=== PATIENT | female | born 1995 | race American Indian/Alaskan Native ===

== ENCOUNTER 2021-04-07 08:28 | Emergency (ER) | payer OTHER ==
[2021-04-07] MEDS ORDERED: IBUPROFEN 600 MG TAB PO ONE (10:43)
--- NOTE | 2021-04-07 10:46 | Emergency Department Report ---
ED ENT HPI - General Chief complaint: Sore Throat Stated complaint: SORE THROAT Time Seen by Provider: 04/07/21 10:42 Source: patient Mode of arrival: Ambulatory Limitations: No Limitations - History of Present Illness Initial comments: The patient was evaluated in the emergency department for symptoms described in the history of present illness. He/she was evaluated in the context of the global COVID-19 pandemic, which necessitated consideration that the patient might be at risk for infection with the virus that causes COVID-19. Institutional protocols and algorithms that pertain to the evaluation of patients at risk for COVID-19 are in a state of rapid change based on information released by regulatory bodies including the CDC and federal and state organizations. These policies and algorithms were followed during the patient's care in the emergency department. Please note that these policies, procedures and recommendations changed on a rapid basis. 26-year-old -[place] female presents to the emergency room complaining of's sore throat for 2 weeks. Patient also reports of tonsillar pain. She states pain with swallowing. She has taken nothing for pain but is taken Benadryl. She denies any past medical history currently takes no meds and has no known drug allergies. Patient denies any fever chills no nausea no vomiting no chest pain or shortness of breath. MD complaint: sore throat Onset/Timin -: week(s) Location: throat Severity: moderate Severity scale (0 -10): 7 Quality: stabbing, sharp Consistency: constant Improves with: none Worsens with: none Associated Symptoms: cough, pain with swallowing, sore throat. denies: fever - Related Data Previous Rx's Medication Instructions Recorded Last Taken Type Amoxicillin [Trimox CAP] 500 mg PO Q8H #21 capsule 11/21/19 Unknown Rx Benzonatate [Tessalon Perles] 100 mg PO Q8HR #30 capsule 11/21/19 Unknown Rx Nystas/Diphen/Xyl Visc/Mylanta 15 ml MM Q6H PRN #120 ml 11/21/19 Unknown Rx [Magic Mouthwash] Allergies Allergy/AdvReac Type Severity Reaction Status Date / Time No Known Allergies Allergy Verified 04/07/21 12:10 ED Dental HPI - General Chief complaint: Sore Throat Stated complaint: SORE THROAT Time Seen by Provider: 04/07/21 10:42 Source: patient Mode of arrival: Ambulatory Limitations: No Limitations - Related Data Previous Rx's Medication Instructions Recorded Last Taken Type Amoxicillin [Trimox CAP] 500 mg PO Q8H #21 capsule 11/21/19 Unknown Rx Benzonatate [Tessalon Perles] 100 mg PO Q8HR #30 capsule 11/21/19 Unknown Rx Nystas/Diphen/Xyl Visc/Mylanta 15 ml MM Q6H PRN #120 ml 11/21/19 Unknown Rx [Magic Mouthwash] Allergies Allergy/AdvReac Type Severity Reaction Status Date / Time No Known Allergies Allergy Verified 04/07/21 12:10 ED Review of Systems ROS: Stated complaint: SORE THROAT Other details as noted in HPI Comment: All other systems reviewed and negative ED Past Medical Hx - Social History Smoking Status: Never Smoker Substance Use Type: None - Medications Home Medications: Home Medications Medication Instructions Recorded Confirmed Last Taken Type Amoxicillin [Trimox CAP] 500 mg PO Q8H #21 capsule 11/21/19 04/07/21 Unknown Rx Benzonatate [Tessalon Perles] 100 mg PO Q8HR #30 capsule 11/21/19 04/07/21 Unknown Rx Nystas/Diphen/Xyl Visc/Mylanta 15 ml MM Q6H PRN #120 ml 11/21/19 04/07/21 Unknown Rx [Magic Mouthwash] ED Physical Exam - General Limitations: No Limitations General appearance: alert, in no apparent distress - Head Head exam: Present: atraumatic, normocephalic - Eye Eye exam: Present: normal appearance - ENT ENT exam: Present: mucous membranes moist - Expanded ENT Exam Expanded Throat exam: Positive: tonsillar erythema, tonsillomegaly - Neck Neck exam: Present: normal inspection, tenderness, full ROM, lymphadenopathy - Respiratory Respiratory exam: Present: normal lung sounds bilaterally. Absent: respiratory distress - Cardiovascular Cardiovascular Exam: Present: regular rate, normal rhythm. Absent: systolic murmur, diastolic murmur, rubs, gallop - GI/Abdominal GI/Abdominal exam: Present: soft, normal bowel sounds - Extremities Exam Extremities exam: Present: normal inspection - Back Exam Back exam: Present: normal inspection - Neurological Exam Neurological exam: Present: alert, oriented X3 - Psychiatric Psychiatric exam: Present: normal affect, normal mood - Skin Skin exam: Present: warm, dry, intact, normal color. Absent: rash ED Course Vital Signs 04/07/21 04/07/21 09:19 12:07 Temperature 98.0 F 98.2 F Pulse Rate 100 H 69 Respiratory 16 12 Rate Blood Pressure 114/71 111/73 Blood Pressure 111/73 [Right] O2 Sat by Pulse 98 97 Oximetry ED Medical Decision Making - Medical Decision Making 26-year-old -[place] female presents to the emergency room complaining of's sore throat for 2 weeks. Patient also reports of tonsillar pain. She states pain with swallowing. She has taken nothing for pain but is taken Benadryl. She denies any past medical history currently takes no meds and has no known drug allergies. Patient denies any fever chills no nausea no vomiting no chest pain or shortness of breath. Rapid strep throat ibuprofen has been ordered Strep test is negative. Patient be treated for viral sore throat. Critical care attestation.: If time is entered above; I have spent that time in minutes in the direct care of this critically ill patient, excluding procedure time. ED Disposition Clinical Impression: Sore throat (viral) Disposition: 01 HOME / SELF CARE / HOMELESS Is pt being admited?: No Does the pt Need Aspirin: No Condition: Stable Instructions: Sore Throat, [id number] Additional Instructions: Strep test is negative. Therefore you do not need any antibiotics. Encouraged to increase your fluid intake take Tylenol ibuprofen warm salt gargles and follow-up with your primary care provider. Referrals: PRIMARY CARE, [Primary Care Provider] - 3-5 Days Your, primary care provider. [Other] - 3-5 Days [facility] [Provider Group] - 3-5 Days Forms: Work/School Release Form(ED) Time of Disposition: 12:37
[2021-04-07 12:10] VITALS: BP 111/73
== END 2021-04-07 13:07 | disposition home or self-care (01) ==
LOC: ED 08:28
DX: J02.8 Acute pharyngitis due to other specified organisms (principal)
CPT/HCPCS: 87116; 87430; 99283

== ENCOUNTER 2021-10-19 16:33 | Emergency (ER) | payer OTHER ==
[2021-10-19 17:36] VITALS: BP 117/81
--- NOTE | 2021-10-19 17:59 | XRay Report ---
CHEST 2 VIEWS INDICATION: CHEST CONGESTION. COMPARISON: 11/21/2019 FINDINGS: Support devices: None. Heart: Within normal limits. Lungs/Pleura: No acute air space or interstitial disease. No significant pleural effusion. IMPRESSION: No acute findings. Signer Name: Diaz Krishnamurthy MD Signed: 10/19/2021 5:55 PM Workstation Name: [email or web address]
[2021-10-19] MEDS ORDERED: BENZONATATE 100 MG CAP PO ONE (23:42)
[2021-10-19] MEDS ORDERED: predniSONE 20 MG TAB PO ONE (23:42)
[2021-10-19] MEDS ORDERED: ACETAMINOPHEN W/CODEINE 300-30 MG TAB PO ONE (23:43)
--- NOTE | 2021-10-20 00:07 | Emergency Department Report ---
ED ENT HPI - General Chief complaint: Upper Respiratory Infection Stated complaint: COLD SYMPTOMS/DIFFICULTY BREATHING Time Seen by Provider: 10/19/21 23:01 Source: patient Mode of arrival: Ambulatory Limitations: No Limitations - History of Present Illness MD complaint: sore throat, ear pain -: Gradual, days(s) (3-4) Location: R ear, L ear, throat Severity: moderate Severity scale (0 -10): 6 Quality: aching Consistency: constant Worsens with: swallowing Associated Symptoms: cough, pain with swallowing, sore throat, rhinorrhea. denies: fever, gum swelling, toothache, tinnitus, hearing loss, discharge from ear - Related Data Previous Rx's Medication Instructions Recorded Last Taken Type Amoxicillin [Trimox CAP] 500 mg PO Q8H #21 capsule 11/21/19 Unknown Rx Benzonatate [Tessalon Perles] 100 mg PO Q8HR #30 capsule 11/21/19 Unknown Rx Nystas/Diphen/Xyl Visc/Mylanta 15 ml MM Q6H PRN #120 ml 11/21/19 Unknown Rx [Magic Mouthwash] Brompheniramine/Pseudoephed/Dm 10 ml PO Q8HR PRN #120 ml 10/20/21 Unknown Rx [Bromfed Dm Cough Syrup] Prednisone [predniSONE 10 mg 10 mg PO .TAPER #1 pack 10/20/21 Unknown Rx (6-Day Pack, 21 Tabs)] Allergies Allergy/AdvReac Type Severity Reaction Status Date / Time No Known Allergies Allergy Verified 04/07/21 12:10 ED Dental HPI - General Chief complaint: Upper Respiratory Infection Stated complaint: COLD SYMPTOMS/DIFFICULTY BREATHING Time Seen by Provider: 10/19/21 23:01 Source: patient Mode of arrival: Ambulatory Limitations: No Limitations - Related Data Previous Rx's Medication Instructions Recorded Last Taken Type Amoxicillin [Trimox CAP] 500 mg PO Q8H #21 capsule 11/21/19 Unknown Rx Benzonatate [Tessalon Perles] 100 mg PO Q8HR #30 capsule 11/21/19 Unknown Rx Nystas/Diphen/Xyl Visc/Mylanta 15 ml MM Q6H PRN #120 ml 11/21/19 Unknown Rx [Magic Mouthwash] Brompheniramine/Pseudoephed/Dm 10 ml PO Q8HR PRN #120 ml 10/20/21 Unknown Rx [Bromfed Dm Cough Syrup] Prednisone [predniSONE 10 mg 10 mg PO .TAPER #1 pack 10/20/21 Unknown Rx (6-Day Pack, 21 Tabs)] Allergies Allergy/AdvReac Type Severity Reaction Status Date / Time No Known Allergies Allergy Verified 04/07/21 12:10 ED Review of Systems ROS: Stated complaint: COLD SYMPTOMS/DIFFICULTY BREATHING Other details as noted in HPI Comment: All other systems reviewed and negative Constitutional: denies: chills, fever Eyes: denies: eye pain, eye discharge, vision change ENT: ear pain, throat pain, congestion. denies: dental pain Respiratory: cough. denies: shortness of breath, stridor, wheezing Cardiovascular: denies: chest pain, palpitations, dyspnea on exertion Gastrointestinal: denies: abdominal pain, nausea, vomiting Genitourinary: denies: urgency, dysuria Musculoskeletal: denies: back pain Skin: denies: rash, lesions Neurological: headache. denies: weakness, numbness, paresthesias ED Past Medical Hx - Past Medical History Previous Medical History?: No - Social History Smoking Status: Never Smoker Substance Use Type: None - Medications Home Medications: Home Medications Medication Instructions Recorded Confirmed Last Taken Type Amoxicillin [Trimox CAP] 500 mg PO Q8H #21 capsule 11/21/19 04/07/21 Unknown Rx Benzonatate [Tessalon Perles] 100 mg PO Q8HR #30 capsule 11/21/19 04/07/21 Unknown Rx Nystas/Diphen/Xyl Visc/Mylanta 15 ml MM Q6H PRN #120 ml 11/21/19 04/07/21 Unknown Rx [Magic Mouthwash] Brompheniramine/Pseudoephed/Dm 10 ml PO Q8HR PRN #120 ml 10/20/21 Unknown Rx [Bromfed Dm Cough Syrup] Prednisone [predniSONE 10 mg 10 mg PO .TAPER #1 pack 10/20/21 Unknown Rx (6-Day Pack, 21 Tabs)] ED Physical Exam - General Limitations: No Limitations General appearance: alert, in no apparent distress - Head Head exam: Present: atraumatic, normocephalic - Eye Eye exam: Present: normal appearance, PERRL. Absent: conjunctival injection, periorbital swelling, periorbital tenderness - ENT ENT exam: Present: mucous membranes moist, TM's normal bilaterally. Absent: normal exam (bilateral nasal mucosal edema), normal orophraynx (erythema to posterior oropharynx ) - Expanded ENT Exam Expanded Ear exam: Present: normal external inspection Mouth exam: Present: normal external inspection Teeth exam: Present: normal inspection Throat exam: Negative: tonsillar erythema, tonsillomegaly, tonsillar exudate, R peritonsillar mass, L peritonsillar mass - Neck Neck exam: Present: normal inspection. Absent: tenderness, lymphadenopathy - Respiratory Respiratory exam: Present: normal lung sounds bilaterally. Absent: respiratory distress, wheezes, rales, rhonchi, stridor, chest wall tenderness - Cardiovascular Cardiovascular Exam: Present: regular rate, normal heart sounds - GI/Abdominal GI/Abdominal exam: Present: soft, normal bowel sounds. Absent: distended, tenderness, guarding, rebound, rigid - Extremities Exam Extremities exam: Present: normal inspection. Absent: tenderness - Back Exam Back exam: Present: normal inspection. Absent: CVA tenderness (R), CVA tenderness (L), vertebral tenderness - Neurological Exam Neurological exam: Present: alert, oriented X3, normal gait - Psychiatric Psychiatric exam: Present: normal affect, normal mood - Skin Skin exam: Present: warm, dry, intact, normal color ED Course Vital Signs 10/19/21 10/20/21 17:25 00:19 Temperature 97.8 F Pulse Rate 82 Respiratory 16 14 Rate Blood Pressure 117/81 O2 Sat by Pulse 98 Oximetry ED Medical Decision Making - Radiology Data Radiology results: report reviewed, image reviewed Chest xray: FINDINGS: Support devices: None. Heart: Within normal limits. Lungs/Pleura: No acute air space or interstitial disease. No significant pleural effusion. IMPRESSION: No acute findings. - Medical Decision Making 26 yof with c/o symptoms of URI, chest xray without any acute abnormalities. She will be treated with steroids and cough suppressants. She is advised to take medications as prescribed and follow up with her pcp if no improvement or worsening symptoms. She is advised to return to ed as needed. She verbalizes understanding of and agreement with plan of care. Critical care attestation.: If time is entered above; I have spent that time in minutes in the direct care of this critically ill patient, excluding procedure time. ED Disposition Clinical Impression: URI with cough and congestion Disposition: 01 HOME / SELF CARE / HOMELESS Is pt being admited?: No Does the pt Need Aspirin: No Condition: Stable Instructions: Cough, Adult, [id number], Upper Respiratory Infection, Adult, [id number] Additional Instructions: Take medications as prescribed. Follow-up primary care provider if no improvement or worsening symptoms. Return to the emergency department as needed. Prescriptions: Brompheniramine/Pseudoephed/Dm [Bromfed Dm Cough Syrup] 10 ml PO Q8HR PRN #120 ml PRN Reason: Cough Prednisone [predniSONE 10 mg (6-Day Pack, 21 Tabs)] 10 mg PO .TAPER #1 pack Referrals: PRIMARY CARE, [Primary Care Provider] - 3-5 Days Forms: Work/School Release Form(ED) Time of Disposition: 00:06
== END 2021-10-20 00:39 | disposition home or self-care (01) ==
LOC: ED 16:33
DX: J06.9 Acute upper respiratory infection, unspecified (principal); R05.9 Cough, unspecified; R68.89 Other general symptoms and signs
CPT/HCPCS: 71046; 99283